=== PATIENT | female | born 1990 | race Hispanic/Latino ===

== ENCOUNTER 2020-05-21 16:25 | Emergency (ER) | payer OTHER ==
[~2020-05-21] VITALS: Ht 157.5 cm; Wt 80.3 kg
[2020-05-21] MEDS ORDERED: ULTRAM50 MG PO (20:30)
== END 2020-05-21 20:33 | disposition home or self-care (01) ==
LOC: ED 16:25
DX: R10.31 Right lower quadrant pain (principal)
CPT/HCPCS: 74177; 76830; 76856; 80053; 81001; 83690; 84703; 85025; 96375; 99284-25; J1170; J1885; J2405; J7030; Q9967

== ENCOUNTER 2024-11-02 12:49 | Emergency (ER) | payer OTHER ==
[~2024-11-02] VITALS: Ht 157.5 cm; Wt 79.8 kg
[~2024-11-02 12:49] MED LIST: ULTRAM50 MG PO
[2024-11-02 17:14] LABS: EOSINOPHILS 2.5 % (0-6); HEMATOCRIT 42.7 % (35.0-50.0); HEMOGLOBIN 14.6 g/dL (12.0-18.0); LYMPHOCYTES 59.8 % (24-44); MCH 30.2 (27-36); MCHC 34.2 g/dl (30-36); MCV 88.2 fl (81-99); MONOCYTES 4.6 % (0-12); NEUTROPHILS 32.1 % (39-80); PLATELET COUNT 270 K/uL (140-440); RBC 4.85 M/ul (4.3-5.7); RDW 13.8 (10.5-15.0)
[2024-11-02] MEDS ORDERED: ondansetron HCL 4 MG/2 ML VIAL IV ONE ×2 (17:15→18:45)
[2024-11-02 17:21] LABS: ALBUMIN 4.1 g/dL (3.4-5.0); ALBUMIN/GLOBULIN RATIO 0.98 (1.1-2.4); ANION GAP 13.9 (7-21); BILIRUBIN, TOTAL 0.4 ng/dL (0.2-1.0); BUN/CREATININE RATIO 9.72 (6.0-28.6); CALCIUM 9.8 mg/dL (8.5-10.1); CREATININE, SERUM 0.72 mg/dL (0.55-1.02); POTASSIUM 3.9 mmol/L (3.5-5.1); PROTEIN, TOTAL 8.3 g/dL (6.4-8.2)
[2024-11-02] MEDS ORDERED: HYDROmorphone HCL 1 MG/ML SYR IV PRN (18:45)
[2024-11-02] MEDS ORDERED: SODIUM CHLORIDE 0.9% 1,000 ML IV ONE (18:45)
[2024-11-02] MEDS ORDERED: ONDANSETRON ODT8 MG PO (19:47)
[2024-11-02] MEDS ORDERED: ONDANSETRON 4 MG HOME.PACK SL ONE (20:00)
[2024-11-02 20:16] VITALS: BP 106/69
== END 2024-11-02 20:17 | disposition home or self-care (01) ==
LOC: ED 12:49
PROVIDERS: Emergency Medicine
DX: R10.32 Left lower quadrant pain (principal); R10.12 Left upper quadrant pain
CPT/HCPCS: 36415; 74177; 80053; 83690; 84703; 85025; 96374; 96375; 99284-25; A9270; J1171; J2405; J7030; Q9967